=== PATIENT | male | born 1985 | race Caucasian/White ===

== ENCOUNTER 2017-12-17 08:08 | Emergency (ER) | payer BC ==
[~2017-12-17] VITALS: Ht 177.8 cm; Wt 91.0 kg
[2017-12-17 09:01] LABS: HEMATOCRIT 43.4 % (38.0-50.0); HEMOGLOBIN 15.3 G/DL (12.5-16.6); MCH 30.9 PG (29.0-34.0); MCHC 35.3 G/DL (30.0-36.0); MCV 87.7 FL (86-99); PLATELET COUNT 307 K/uL (156-360); RBC DIS.WIDTH-CV 12.4 % (11.8-14.6); RBC DIS.WIDTH-SD 39.5 % (39-53); RED BLOOD COUNT 4.95 M/uL (4.00-5.50); WHITE BLOOD COUNT 14.5 K/uL (4.1-10.2)
[2017-12-17 09:08] LABS: ALBUMIN 4.3 g/dL (3.2-4.8); CHLORIDE 110 mEq/L (99-109); POTASSIUM 2.9 mEq/L (3.7-5.4); SODIUM 142 mEq/L (136-147)
[2017-12-17 09:11] LABS: GLUCOSE 94 mg/dL (70-99); TOTAL PROTEIN 7.1 g/dL (6.4-8.3)
[2017-12-17 09:13] LABS: TOTAL BILIRUBIN 0.2 mg/dL (0.0-1.0)
[2017-12-17 09:14] LABS: ALKALINE PHOSPHATASE 85 IU/L (3-129); CREATININE 0.9 mg/dL (0.6-1.3)
[2017-12-17 09:15] LABS: UREA NITROGEN (BUN) 17 mg/dL (9-23)
[2017-12-17 09:16] LABS: AST (GOT) 26 IU/L (2-34)
[2017-12-17 09:17] LABS: ALT (GPT) 69 IU/L (3-49); CREATINE KINASE 104 IU/L (1-294); TOTAL CK 104 IU/L (1-294)
[2017-12-17 09:18] LABS: GFR ESTIMATE (CALCULATED) > 59 mL/min/ (58.99-99999)
[2017-12-17 09:23] LABS: CK-MB 1.3 ng/mL (0.0-4.9); CKMB RELATIVE INDEX 1.3 (0.0-3.9)
[2017-12-17 09:29] LABS: ERTH.SED.RATE 13 MM/HR (0-15)
[2017-12-17 10:04] LABS: C-REACTIVE PROTEIN 6.8 MG/L (0-10)
[2017-12-17 10:29] LABS: APPEARANCE CLEAR ((CLEAR)); BILIRUBIN NEGATIVE; BLOOD NEGATIVE; COLOR YELLOW ((YELLOW)); GLUCOSE (STRIP) 50; KETONES NEGATIVE; LEUKOCYTES NEGATIVE; NITRITE NEGATIVE; PROTEIN (STRIP) 30; SPECIFIC GRAVITY 1.031 (1.000-1.030); UROBILINOGEN 0.2 MG/DL (0.2-1.0)
[2017-12-17] MEDS ORDERED: K-DUR20 MEQ PO (11:35)
[2017-12-17] MEDS ORDERED: ULTRAM50 MG PO (11:35)
[2017-12-17 12:06] VITALS: BP 127/78
[2017-12-17 12:39] LABS: THYROTROPIN (TSH) 2.1 MIU/L (0.4-5.5)
== END 2017-12-17 12:29 | disposition home or self-care (01) ==
LOC: EME 08:08
PROVIDERS: Nurse Practitioner Family
DX: E87.6 Hypokalemia (principal); M79.1 Myalgia; G47.30 Sleep apnea, unspecified; Z87.39 Personal history of other diseases of the musculoskeletal system and connective tissue
CPT/HCPCS: 71046; 80053; 81003; 82550; 82553; 84439; 84443; 85027; 85652; 86140; 87502; 93005; 99281; 99285; J1885; J7030